=== PATIENT | female | born 1945 | race Caucasian/White ===

== ENCOUNTER 2017-02-14 10:53 | Emergency (ER) | payer OTHER ==
[2017-02-14 11:03] VITALS: RESP 16
--- NOTE | 2017-02-14 11:58 | EDPHY ---
H & P Stated Complaint: R foot pain swelling, redness, no known trauma Time Seen by Provider: 02/14/17 11:58 HPI/ROS: HPI: This is a 72-year-old female who presents with Chief Complaint: left foot pain swelling, redness, no known trauma Location: Left great toe Quality: Swelling Duration: 3 days Signs and Symptoms: + redness, + swelling, no warmth, No bleeding, no radiation , no numbness, no weakness, no tingling, no incontinence, no decreased range of motion, no fever Timing: Gradually worsening Severity: [id number] Context: Patient complains of left big toe on the lateral aspect swelling and redness, gradual onset, nonradiating over the last 3 days. She does not report any known injury. She does have pain with weight-bearing. She noted in October she had a thorn at the ball of her left foot that she removed. She is not sure if there has developed an infection since then. no hx MRSA/DM/peripheral neuropathy/gout. Modifying Factors: Ice pack applied Comment: ROS: Constitutional: No fever, no chills, no weight loss Eyes: No blurred vision Respiratory: No shortness of breath, no cough Cardiovascular: No chest pain Gastrointestinal: No nausea, no vomiting no diarrhea Genitourinary: No dysuria Extremities: No myalgias Neurologic: No weakness, no numbness Skin: No rashes Hematologic: No bruising, no bleeding Source: Patient Exam Limitations: No limitations - Personal History Current Tetanus/Diphtheria Vaccine: Unsure Current Tetanus Diphtheria and Acellular Pertussis (TDAP): Unsure - Medical/Surgical History Hx Asthma: No Hx Chronic Respiratory Disease: No Hx Diabetes: No Hx Cardiac Disease: No Hx Renal Disease: No Hx Cirrhosis: No Hx Alcoholism: No Hx HIV/AIDS: No Hx Splenectomy or Spleen Trauma: No Other PMH: denies - Social History Smoking Status: Never smoked - Physical Exam Exam: CONSTITUTIONAL: Well-appearing pleasant elderly white female, awake and alert, no obvious distress HEENT: Atraumatic and normocephalic, PERRL, EOMI. Tympanic membranes clear. Oropharynx clear, no exudate and moist pink mucosa. Airway patent. No lymphadenopathy. No meningismus. Cardiovascular: Normal S1/S2, regular rate, regular rhythm, without murmur rub or gallop. PULMONARY/CHEST: Symmetrical and nontender. Clear to auscultation bilaterally. Good air movement. No accessory muscle usage. ABDOMEN: Soft, nondistended, nontender, no rebound, no guarding, no peritoneal signs, no masses or organomegaly. No CVAT. EXTREMITIES: 2/2 pulses, left great toe lateral aspect mild erythema/swelling. Flexion/extension/light touch sensation intact at DIP/MCP joint. No heel pain. Achilles intact. Ball of foot shows no redness/foreign body. no deformities, no clubbing, no cyanosis or edema. NEUROLOGICAL: no focal neuro deficits. GCS 15. SKIN: Warm and dry, no erythema. no rash. Good capillary refill. Constitutional: Initial Vital Signs Temperature (C) 37.2 C 02/14/17 11:00 Heart Rate 70 02/14/17 11:00 Respiratory Rate 16 02/14/17 11:00 Blood Pressure 149/88 H 02/14/17 11:00 O2 Sat (%) 98 02/14/17 11:00 O2 Delivery Mode Room Air Allergies/Adverse Reactions: No Known Allergies Allergy (Unverified 02/14/17 11:00) Home Medications: Medication Instructions Recorded Cephalexin [Keflex (*)] 500 mg PO TID #21 cap 02/14/17 Sulfamethox/Tmp 800/160 mg 1 tab PO BID #14 tab 02/14/17 [Bactrim Ds] traMADol [Ultram 50 mg (*)] 50 mg PO Q4 PRN #12 tab 02/14/17 Medical Decision Making - Diagnostics Imaging Results: Imaging Impressions Foot X-Ray 02/14/17 12:03 Impression: Negative left foot radiographs. ED Course/Re-evaluation: X-ray ordered. X-ray my read via PAC shows no fracture/dislocation/foreign body Etiology is early cellulitis. Physical presentation is not consistent with gouty arthropathy Will immobilize the tlower extremity; use crutches; cover with Keflex and Bactrim. Reluctant to give NSAIDs with Bactrim due to older age and risk of acute kidney injury. Patient will follow up at [facility] for recheck in 2-3 days. Differential Diagnosis: Differential includes fracture, contusion, cellulitis, abscess, foreign body, gouty arthropathy Departure - Departure Disposition: Home, Routine, Self-Care Clinical Impression: Cellulitis of foot, left Condition: Good Instructions: Cellulitis (ED), Gout (ED) Additional Instructions: Please take all medications as prescribed. Stay off the extremity as much as possible until symptoms resolve. Please follow-up for recheck in 2-3 days at [facility]. Referrals: [facility],. [Clinic] - As per Instructions Prescriptions: Cephalexin [Keflex (*)] 500 mg PO TID #21 cap Sulfamethox/Tmp 800/160 mg [Bactrim Ds] 1 tab PO BID #14 tab traMADol [Ultram 50 mg (*)] 50 mg PO Q4 PRN #12 tab PRN Reason: Pain, Moderate
[2017-02-14 14:31] VITALS: BP 134/87; PULSE 73; TEMP 98.8; O2SAT 97
== END 2017-02-14 14:27 | disposition home or self-care (01) ==
DX: L03.116 Cellulitis of left lower limb (principal)

== ENCOUNTER → 2018-07-18 | Outpatient (CLI) | payer OTHER, MEDICARE | LOC: BMCIMAGING 12:21 | PROVIDERS: ATTEND Internal Medicine | DX: M89.8X1 Other specified disorders of bone, shoulder (principal) ==